=== PATIENT | female | born 1985 | race Caucasian/White ===

== ENCOUNTER 2016-08-14 08:08 | Emergency (ER) | payer BC ==
[2016-08-14 08:17] VITALS: BP 108/69
--- NOTE | 2016-08-14 08:32 | UC ---
Throat Pain/Nasal Reji HPI - HPI Summary HPI Summary: complaint of red itchy eye that started 4 days ago started on gentamycin eyedrops on but it hasn't helped her eye more purulent discharge for the last 2 days denies eye pain and vision changes sore throat that started 2 days ago fever of 102 last night nasal congfestion denies cough took tylenol last night with some relief - History of Current Complaint Chief Complaint: UCEye Stated Complaint: RIGHT EYE/SINUS,SORE THROAT,FEVER Time Seen by Provider: 08/14/16 08:24 Hx Obtained From: Patient Hx Last Menstrual Period: 07/16/16 - Allergies/Home Medications Allergies/Adverse Reactions: Allergies Allergy/AdvReac Type Severity Reaction Status Date / Time Erythromycin Allergy Severe Vomiting Verified 08/14/16 08:17 PMH/Surg Hx/FS Hx/Imm Hx Previously Healthy: No - conjunctivitis Respiratory History Of: Reports: Asthma Neurological History Of: Reports: Migraine - occasionally Psychological History Of: Reports: Anxiety, Depression - Surgical History Surgical History: Yes Surgery Procedure, Year, and Place: C SECTION 2011, 2014 - Family History Known Family History: Negative: Cardiac Disease, Hypertension, Diabetes - Social History Occupation: Employed Full-time Lives: With Family Alcohol Use: Occasionally Substance Use Type: None Smoking Status (MU): Never Smoked Tobacco - Immunization History Most Recent Influenza Vaccination: 2016 Most Recent Tetanus Shot: up to date Most Recent Pneumonia Vaccination: never Review of Systems Constitutional: Fever Skin: Negative Eyes: Drainage, Eye Redness ENT: Sore Throat, Nasal Discharge Respiratory: Negative Cardiovascular: Negative Gastrointestinal: Negative Genitourinary: Negative Motor: Negative Neurovascular: Negative Musculoskeletal: Negative Neurological: Negative Psychological: Negative All Other Systems Reviewed And Are Negative: Yes Physical Exam Triage Information Reviewed: Yes Appearance: Well-Nourished, Ill-Appearing Vital Signs: Initial Vital Signs Temp 99.4 F 08/14/16 08:10 Pulse 109 08/14/16 08:10 Resp 16 08/14/16 08:10 BP 108/69 08/14/16 08:10 Pulse Ox 98 08/14/16 08:10 Vital Signs Reviewed: Yes Eyes: Positive: Conjunctiva Inflamed - right>left, Discharge ENT: Positive: Pharyngeal erythema, Nasal congestion, Nasal drainage, TMs normal , Tonsillar swelling, Tonsillar exudate Neck: Positive: No Lymphadenopathy Respiratory: Positive: Lungs clear, Normal breath sounds, No respiratory distress, No accessory muscle use Cardiovascular: Positive: RRR, No Murmur, Pulses Normal Abdomen Description: Positive: Nontender, No Organomegaly, Soft Bowel Sounds: Positive: Present Musculoskeletal: Positive: No Edema Neurological: Positive: Alert Psychological Exam: Normal Skin Exam: Normal Throat Pain/Nasal Course/Dx - Differential Dx/Diagnosis Differential Diagnosis/HQI/PQRI: Pharyngitis, Tonsillitis, Other - conjunctivitis Provider Diagnoses: conjunctivitis-bilateral. pharyngitis Discharge - Discharge Plan Condition: Stable Disposition: HOME Prescriptions: Tobramycin (Ophth) [Tobrex] 0.3 % OP Q4HR #1 jaylyn Patient Education Materials: Conjunctivitis (ED), Pharyngitis (ED) Referrals: Milan Zhu MD [Medical Doctor] - Additional Instructions: CONJUNCTIVITIS What is Conjunctivitis? Conjunctivitis is redness and swelling of the conjunctiva, the thin transparent layer that lines the inner eyelid and covers the white part of the eye. The three main types of conjunctivitis are infectious, allergic, and chemical. The infectious type, commonly called "pink eye," is caused by a contagious virus or by bacteria. Your body's allergies to pollen, cosmetics, animals or fabrics often bring on allergic conjunctivitis. Irritants like air pollution, noxious fumes and chlorine in swimming pools may produce the chemical form. Symptoms Might Include: More tearing Eye pain Redness in the eyes Gritty feeling in the eyes Itching of the eye Blurred vision Sensitivity to light Crusts that form on the eyelid overnight Treatment Recommendations: Use eye drops or ointment as directed. Do not rub or touch your eyes. Wash your hands frequently. Use cool compresses to relieve pain and itching. Prevention: Do not share eye make-up. Replace eye make-up frequently. Do not share towels, washcloths, etc. Do not share eye drops. Disinfect and handle contact lenses properly. PHARYNGITIS (Sore Throat) What is Pharyngitis? The medical name for a sore throat is Pharyngitis. It is caused by an infection or irritation of your throat or tonsils. The infection can be caused by a virus or by bacteria. Not everyone with Pharyngitis needs antibiotics. Antibiotics will not make viral infections better, and they will not help a sore throat caused by irritation. Symptoms May Include: Sore throat Swelling of the glands in the neck Trouble or pain with swallowing Fever Headache Cough Extreme tiredness Ear pain Treatment Recommendations: Gargle every few hours with a solution of 1/4 teaspoon of salt dissolved in 1/ 2 cup of warm water. Drink plenty of warm beverages, like tea with lemon, (with or without honey) and soup. You may eat and drink cold foods and liquids like frozen yogurt, popsicles, and ice water if that makes your throat feel better. The goal is to keep you well hydrated. Use a "cool-mist" vaporizer or humidifier in the room where you spend most of your time. If you get a sore throat often, consider adding an electronic air filter and humidifier to your furnace system. Don't smoke. Do not eat spicy foods. Take medicine exactly as prescribed. If you do not think it is helping, call your healthcare provider. Do not increase how much or how often you take it without getting their OK first. Non-prescription anti-inflammatory medicine like ibuprofen (Motrin, Advil) or naproxen (Aleve) may help lessen the pain. You should not take these medicines if you have had bleeding in your stomach in the past. Acetaminophen ( Tylenol) is another choice of medicine that may help the pain. If pain medicine that makes you tired or sleepy or contains narcotics is prescribed, you should not drink, drive, or participate in any other activities that you need to be clear-headed for. Please keep all medicines out of the reach of children. Do not get in close contact with anyone you know who has a sore throat. Use throat lozenges (Cepostat, [place], etc.) or suck on hard candy for temporary relief of the pain with swallowing. (Do not give to children under age 5.) Call Your Doctor or Return Here IF: Your symptoms do not start to get better within 2 days or you become worse. You have a fever over 101.0 F orally. You cant swallow liquids or saliva. You are drooling. You start to have trouble breathing. You start to have a rash. Call Your Doctor or Return Here IF: Your symptoms worsen or do not improve in 3 to 4 days. You have problems with, or loss of, your vision. You have a significant increase in pain. You have any new symptoms that worry you.
== END 2016-08-14 08:54 | disposition home or self-care (01) ==
LOC: UCCORT 08:08
DX: H10.33 Unspecified acute conjunctivitis, bilateral (principal); J02.9 Acute pharyngitis, unspecified; J45.909 Unspecified asthma, uncomplicated; G43.909 Migraine, unspecified, not intractable, without status migrainosus; F41.8 Other specified anxiety disorders; Z88.1 Allergy status to other antibiotic agents
CPT/HCPCS: 87651; 99212; G0463

== ENCOUNTER 2017-11-06 06:11 | Day surgery (SDC) | payer BC ==
--- NOTE | 2017-10-30 11:54 | HP ---
AMENDED REPORT NOW INCLUDES COSIGNER DESIGNATION - ESIGNED BEFORE ADJUSTMENT CC: Rashmi Ye NP, Marlys Foster * ADMISSION HISTORY AND PHYSICAL: DATE OF ADMISSION: 11/06/17 ATTENDING SURGEON: Dr. Deangelo Melgar.* (DICTATED BY DIONI MCMAHON) CHIEF COMPLAINT: Gallstones. HISTORY OF PRESENT ILLNESS: This is a 32-year-old female, who began having upper intestinal symptoms around the first of this year. She describes attacks occurring mostly at night with midepigastric pain that goes straight through to her back. She is unable to find a comfortable position. Attacks last for between 1 and 4 hours and are associated with nausea, but no vomiting, fever, or chills. She typically has some loose stool. She has not noted any change or darkening of her urine. Initially, attacks occurred about once monthly and now approximately once every week or two, the most recent being on 10/25/17. She underwent ultrasound on 09/13/17, which showed fatty liver changes and multiple gallstones, though no gallbladder wall thickening, pericholecystic fluid, or ductal dilatation. She was seen in the office by Dr. Melgar on , at which time she was examined. Lab work was obtained on that date showing a normal CBC and a normal CMP including liver function tests. Dr. Melgar feels that her clinical picture is consistent with symptomatic cholelithiasis. The patient understands the indications for surgery, the risks , benefits, and alternatives, and would like to proceed as scheduled with laparoscopic cholecystectomy. PAST MEDICAL HISTORY: Asthma (well controlled), morbid obesity. PAST SURGICAL HISTORY: x2 and D and C (the patient states that in both cases, she was anemic in the postop period, but did not require transfusion ). CURRENT MEDICATIONS: 1. TriNessa ( control pill) once daily. 2. Protonix 40 mg once daily p.r.n. (not actively using at the present time.) 3. Ventolin MDI 2 puffs 4 times daily p.r.n. (has not required recently). DRUG ALLERGIES: ERYTHROMYCIN (GI effects). FAMILY HISTORY: Negative for anesthesia problems, bleeding, or clotting disorders. She states that her father told her that he was told at one point to have his gallbladder out, but that he has not yet undergone surgery. SOCIAL HISTORY: The patient is , she has 2 children. 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 She denies use of tobacco. She drinks on an average less or equal to 1 to 2 drinks per week. She denies any other recreational drug use. REVIEW OF SYSTEMS: General: No recent constitutional symptoms or acute illnesses other than described in the HPI. HEENT: No recent changes or problems reported. Cardiovascular: No chest pain, palpitations, or history of heart murmur. Respiratory: No recent exacerbations of her asthma. No cough or shortness of breath. GI: As above per HPI, history of some acid reflux symptoms but no additional problems recently. : No problems reported. 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 Endocrine: No diabetes or thyroid dysfunction. Remainder of review of system is negative. PHYSICAL EXAMINATION GENERAL: Well-nourished, morbidly obese female, in no acute distress. VITAL SIGNS: Height 67 inches, weight 257 pounds, BMI of 40. Temperature 97.9 , blood pressure 124/82, pulse 74, respirations 16. HEENT: Pupils equal and round, reactive. EOMs intact. No conjunctival pallor or scleral icterus. Oropharynx: Teeth in good repair. Mucous membranes are moist. No intraoral lesions. NECK: No lymphadenopathy in the cervical or supraclavicular areas. No thyromegaly or masses. LUNGS: Clear to auscultation. No wheezes. HEART: Regular rate and rhythm. No murmur noted. BREASTS: Not examined. ABDOMEN: Pfannenstiel incision, soft, nontender to palpation. Negative Burleson' s sign. No palpable masses or organomegaly. GENITALIA AND RECTAL: Not done. BACK: No spinous processes or CVA tenderness. EXTREMITIES: No edema. NEUROLOGIC: Grossly intact. SKIN: Warm and dry. No suspicious rashes or lesions. IMPRESSION: Symptomatic cholelithiasis. PLAN: Laparoscopic cholecystectomy. DIONI MCMAHON [id number]/[facility] #: [id number] DANIELA
[~2017-11-06 06:11] MED LIST: Acetaminophen TAB* 325 MG PO ONE; Buffered Lidocaine 0.9% SYRIN* 5 ML/SYR SYRINGE INTRADERM ONE
[2017-11-06] MEDS ORDERED: Acetaminophen TAB* 325 MG ONE (06:41)
[2017-11-06] MEDS ORDERED: ceFAZolin 2 GM PREMIX (*) 2 GM/50 ML BAG IVPB ONE (06:42)
[2017-11-06] MEDS ORDERED: Midazolam* 1 MG/ML 2 ML VIAL (2 MG) ONE (07:14)
[2017-11-06] MEDS ORDERED: fentaNYL* 50 MCG/ML 2 ML VIAL (100 MCG VIAL) ONE ×3 (07:14→09:52)
[2017-11-06] MEDS ORDERED: Bupivacaine 0.25% W/EPI* 10 ML SDV ONE ×2 (07:21→07:22)
[2017-11-06] MEDS ORDERED: Rocuronium* 10 MG/ML VIAL ONE (07:40)
[2017-11-06] MEDS ORDERED: Propofol* 10 MG/ML 20 ML BTL IV PUSH ONE ×2 (07:40→08:38)
[2017-11-06] MEDS ORDERED: Dexamethasone IV* 4 MG/ML 1 ML (4 MG) ONE (07:40)
[2017-11-06] MEDS ORDERED: Famotidine IV* 10 MG/ML 2 ML (20 mg) ONE (07:40)
[2017-11-06] MEDS ORDERED: Ketorolac INJ* 30 MG/ML 1 ML VIAL ONE (07:50)
[2017-11-06] MEDS ORDERED: Ondansetron INJ* 2 MG/ML VIAL ONE (07:50)
[2017-11-06] MEDS ORDERED: HYDROmorphone INJ* 0.5 MG/0.5 ML SYRINGE ONE ×2 (07:54→08:34)
[2017-11-06] MEDS ORDERED: Nalbuphine* 10 MG/ML 1 ML VIAL IV PRN (08:03)
[2017-11-06] MEDS ORDERED: Naloxone* 0.4 MG/ML 1 ML VIAL IV PRN (08:03)
[2017-11-06] MEDS ORDERED: Levalbuterol 0.63MG/3ML NEB* UNIT OF USE INH PRN (08:03)
[2017-11-06] MEDS ORDERED: PROCHLORPERAZINE INJ 5 MG/ML 2 ML VIAL IV PRN (08:03)
[2017-11-06] MEDS ORDERED: Acetaminophen TAB* 325 MG PO PRN (08:03)
[2017-11-06] MEDS ORDERED: diPHENhydraMINE IV* 50 MG/ML 1 ml VIAL (BENADRYL) IV PRN (08:03)
[2017-11-06] MEDS ORDERED: HYDROcodone/ACETAMIN 5-325 MG* 1 TAB PO PRN ×2 (08:03)
[2017-11-06] MEDS ORDERED: Ondansetron INJ* 2 MG/ML VIAL IV PRN (08:03)
[2017-11-06] MEDS ORDERED: Scopolamine 1.5 mg* PATCH TRANSDERM PRN (08:03)
[2017-11-06] MEDS ORDERED: DiMENhydriNATE IV* 50 MG/ML VIAL IV PUSH PRN (08:03)
[2017-11-06] MEDS ORDERED: HYDROmorphone INJ* 0.5 MG/0.5 ML SYRINGE IV PRN (08:03)
[2017-11-06] MEDS ORDERED: Labetalol IV* 5 MG/ML 20 ML VIAL ONE (08:39)
[2017-11-06] MEDS ORDERED: DiMENhydriNATE IV* 50 MG/ML VIAL ONE (09:52)
[2017-11-06] MEDS: fentaNYL* 50 MCG/ML 2 ML VIAL (100 MCG VIAL) IV PRN ×2 (09:53→10:08)
[2017-11-06] MEDS ORDERED: HYDROcodone/ACETAMIN 5-325 MG* 1 TAB ONE (10:07)
[2017-11-06 11:36] VITALS: BP 108/77
--- NOTE | 2017-11-06 21:35 | OP ---
DATE OF OPERATION: 11/06/17 - [facility] DATE OF : 81 SURGEON: Deangelo Melgar MD CAMERA REPAIRER: Layla Davies NP ANESTHESIOLOGIST: Mac Brower MD ANESTHESIA: General with local. PRE-OP DIAGNOSES: Cholelithiasis and right upper quadrant abdominal pain. POST-OP DIAGNOSES: Cholelithiasis and right upper quadrant abdominal pain. OPERATIVE PROCEDURE: Laparoscopic cholecystectomy. ESTIMATED BLOOD LOSS: Minimal. WOUND CLASSIFICATION: II. COMPLICATIONS: None. DRAINS: None. SPECIMENS: Gallbladder. DESCRIPTION OF PROCEDURE: Written informed consent was obtained, the abdomen was marked with indelible ink and preoperative antibiotics were administered. The patient was taken to the operating room, placed in the supine position. Sequential compression devices and a warming blanket were applied. General anesthesia was administered. The abdomen was prepped and draped in the usual sterile fashion. Time-out verification was completed. Initially, a small transverse incision was made just above the umbilicus and the midline fascia was divided and the peritoneal cavity was entered under direct vision. A 12-mm blunt port was inserted and the abdomen was insufflated to 15 mmHg. Under direct vision, an 11-mm epigastric port was placed and two 5-mm ports were placed on the right side of the abdominal wall. Liver appeared to be unremarkable. The gallbladder was identified. There was slightly thickened wall, but without discoloration, pericholecystic fluid, or any evidence of acute inflammation. It was somewhat small and contracted and it appeared to be somewhat intrahepatic , but it was grasped and we were able to elevate this up into view. There were peritoneal omental adhesions along the infundibular area, which were taken down sharply. Next, the peritoneum along the medial and lateral aspects of the infundibular area of the gallbladder was then taken down carefully and then I identified the cystic duct and artery as they entered the gallbladder. This cystic duct appeared to be of expected and normal caliber. I took a considerable portion of the inferior part of the gallbladder off the liver bed using the critical view technique to assure myself of these 2 structures. The cystic duct and artery were then doubly clipped and divided. The gallbladder was removed from the liver bed using cautery. The gallbladder was somewhat intrahepatic and there was some bleeding encountered in this portion of dissection from the liver bed, but this was controlled with electrocautery. The gallbladder was then placed in an Endo Catch bag and brought out through the epigastric incision. Once again, hemostasis was assured in the liver bed. All ports were removed under direct vision of the camera. The umbilical fascia was closed with interrupted 0 Vicryl suture. The skin at all 4 incisions was approximated with subcuticular 4-0 Vicryl suture. Steri-Strips were applied. The patient tolerated the procedure well and was taken to the recovery room in stable condition. [id number]/[facility] #: [id number] [facility]ILDREN'S HOSPITALClaude
[2017-11-09] MEDS ORDERED: Scopolamine PATCH Remove* 1 NOTE MISC PATCH OFF ONE (08:04)
== END 2017-11-06 11:56 | disposition home or self-care (01) ==
LOC: OR 06:11
PROVIDERS: ATTEND Surgery
DX: K80.10 Calculus of gallbladder with chronic cholecystitis without obstruction (principal); R10.11 Right upper quadrant pain; E66.01 Morbid (severe) obesity due to excess calories; Z68.41 Body mass index [BMI] 40.0-44.9, adult; Z79.51 Long term (current) use of inhaled steroids
CPT/HCPCS: 81025; 88304; A9270-GY; J0690; J1100; J1170; J1240; J1885; J2250; J2405; J2704; J3010

== ENCOUNTER 2019-05-26 19:19 | Emergency (ER) | payer BC ==
[2019-05-26 19:39] VITALS: BP 110/62
--- NOTE | 2019-05-26 19:46 | UC ---
Throat Pain/Nasal Reji HPI - HPI Summary HPI Summary: 34 yo female with sore throat and swollen glands x 2 day nausea but no vomiting [place] myalgias ? fever - History of Current Complaint Chief Complaint: UCRespiratory Stated Complaint: SORE THROAT Time Seen by Provider: 05/26/19 19:26 Hx Obtained From: Patient Hx Last Menstrual Period: 05/07/19 Onset/Duration: Gradual Onset, Lasting Days Severity: Mild Pain Intensity: 4 Pain Scale Used: 0-10 Numeric Cough: None Associated Signs & Symptoms: Positive: Fever - ? - Epiglottits Risk Factors Epiglottis Risk Factors: Negative - Allergies/Home Medications Allergies/Adverse Reactions: Allergies Allergy/AdvReac Type Severity Reaction Status Date / Time erythromycin base Allergy Vomiting Verified 05/26/19 19:28 Home Medications: Home Medications Trinessa Tablet 1 tab PO DAILY 10/31/17 [History Confirmed 05/26/19] Albuterol HFA INHALER* [Ventolin HFA Inhaler*] 2 puff INH Q4H PRN 05/26/19 [ History Confirmed 05/26/19] Amoxicillin PO (*) [Amoxicillin 875 MG (*)] 875 mg PO BID #20 tab 05/26/19 [Rx] Ibuprofen TAB* [Advil TAB*] 200 mg PO Q6H PRN 05/26/19 [History Confirmed ] PMH/Surg Hx/FS Hx/Imm Hx - Surgical History Surgical History: Yes Surgery Procedure, Year, and Place: C SECTION 2011, 2015. cholycystectomy - Family History Known Family History: Negative: Cardiac Disease, Hypertension, Diabetes - Social History Alcohol Use: Rare Alcohol Amount: 1-2 BEERS MONTH...OR LESS Substance Use Type: None Smoking Status (MU): Never Smoked Tobacco Have You Smoked in the Last Year: No - Immunization History Most Recent Influenza Vaccination: 2016 Most Recent Tetanus Shot: up to date Most Recent Pneumonia Vaccination: never Review of Systems All Other Systems Reviewed And Are Negative: Yes Constitutional: Positive: Chills Skin: Positive: Negative Eyes: Positive: Negative ENT: Positive: Sore Throat Respiratory: Positive: Negative Cardiovascular: Positive: Negative Gastrointestinal: Positive: Negative Genitourinary: Positive: Negative Motor: Positive: Negative Neurovascular: Positive: Negative Musculoskeletal: Positive: Myalgia Neurological/Mental Status: Positive: Headache Psychological: Positive: Negative Physical Exam Triage Information Reviewed: Yes Appearance: Well-Appearing, No Pain Distress, Well-Nourished Vital Signs: Initial Vital Signs Temp 99.2 F 05/26/19 19:30 Pulse 111 05/26/19 19:30 Resp 18 05/26/19 19:30 BP 110/62 05/26/19 19:30 Pulse Ox 99 05/26/19 19:30 Vital Signs Reviewed: Yes Eyes: Positive: Conjunctiva Clear ENT: Positive: Hearing grossly normal, Pharyngeal erythema, Tonsillar swelling, Uvula midline. Negative: Nasal congestion, Nasal drainage, Tonsillar exudate, Trismus, Muffled voice, Hoarse voice Dental Exam: Normal Neck: Positive: Supple, Nontender, Enlarged Nodes @ - ant cerv Respiratory: Positive: Lungs clear, Normal breath sounds, No respiratory distress, No accessory muscle use Cardiovascular: Positive: RRR, No Murmur Musculoskeletal: Positive: ROM Intact, No Edema Neurological: Positive: Alert Psychological Exam: Normal Skin Exam: Normal Diagnostics - Laboratory Lab Results: strep + Throat Pain/Nasal Course/Dx - Differential Dx/Diagnosis Provider Diagnosis: Strep throat Discharge ED - Sign-Out/Discharge Documenting (check all that apply): Patient Departure All imaging exams completed and their final reports reviewed: No Studies - Discharge Plan Condition: Stable Disposition: HOME Prescriptions: Amoxicillin PO (*) [Amoxicillin 875 MG (*)] 875 mg PO BID #20 tab Patient Education Materials: Strep Throat (ED) Referrals: Rashmi Ye NP [Primary Care Provider] - 4 Days (if not better) - Billing Disposition and Condition Condition: STABLE Disposition: Home
[2019-05-26] MEDS ORDERED: Amoxicillin PO (*) 500 MG CAP PO ONE (19:51)
[2019-05-26] MEDS ORDERED: Amoxicillin PO (*) 250 MG CAP PO ONE (19:51)
== END 2019-05-26 20:03 | disposition home or self-care (01) ==
LOC: UCCORT 19:19
DX: J02.0 Streptococcal pharyngitis (principal); R51 Headache; Z88.1 Allergy status to other antibiotic agents
CPT/HCPCS: 87651; 99212; A9270-GY; G0463

== ENCOUNTER 2022-06-16 10:19 | Observation (INO) ==
[2022-06-16] MEDS ORDERED: Al Hydrox/Mg Hydrox/Simet LIQ 30 ML UDC PO ONE (12:18)
[2022-06-16 12:56] LABS: ABS Lymphocytes 1.9 10^3/ul (1.0-4.8); ABS Monocytes 0.5 10^3/ul (0-0.8); ABS Neutrophils 5.5 10^3/ul (1.5-7.7); Eosinophil % 0.6 %; Hematocrit 41 % (35-47); Lymphocyte % 24.2 %; Mean Corpuscular HGB Conc 35 g/dL (31-36); Mean Corpuscular Hemoglobin 31 pg (27-31); Mean Corpuscular Volume 89 fL (80-97); Mean Platelet Volume 9.1 fL (7.4-10.4); Platelet Count 168 10^3/uL (150-450); Red Blood Count 4.58 10^6 /uL (3.70-4.87); Red Cell Distribution Width 13 % (10-15)
[2022-06-16 13:01] LABS: Urine Appearance Cloudy; Urine Bilirubin Negative (Negative); Urine Blood 1+ (Negative); Urine Color Yellow; Urine Glucose Negative (Negative); Urine Ketones Trace (Negative); Urine Nitrite Negative (Negative); Urine Protein Negative (Negative); Urine Specific Gravity 1.019 (1.002-1.030); Urine Urobilinogen Negative (Negative)
[2022-06-16 13:04] LABS: Urine Bacteria Absent (Absent); Urine Red Blood Cell 2+(6-10/hpf) (Absent); Urine Squamous Epithelial Cell Present (Absent); Urine White Blood Cell Trace(0-5/hpf) (Absent)
[2022-06-16 13:46] LABS: Albumin 3.9 g/dL (3.2-5.2); Albumin/Globulin Ratio 1.3 (1-3); C Reactive Protein 50.73 mg/L (<8.01); Creatinine, Serum 0.71 mg/dL (0.51-0.95); Potassium 3.9 mmol/L (3.5-5.0); Total Bilirubin 0.8 mg/dL (0.2-1.0); Total Protein 6.9 g/dL (6.4-8.9); eGFR CKD-EPI 110.8 (>60)
[2022-06-16] MEDS ORDERED: Iohexol 300 (CONTRAST) 10 ML SDV IV ONE (14:23)
[2022-06-16] MEDS ORDERED: Ondansetron 4 mg VIAL 2 MG/ML 2 ml VIAL IV ONE (16:14)
[2022-06-16] MEDS ORDERED: Morphine 4 MG/ML VIAL (1 ml) IV ONE (16:14)
[2022-06-16] MEDS ORDERED: NS 0.9% 1000 ml BAG 1,000 ML IV ONE (16:14)
[2022-06-16] MEDS ORDERED: Ondansetron 4 mg VIAL 2 MG/ML 2 ml VIAL IV PRN (17:12)
[2022-06-16] MEDS: NS 0.9% 1000 ml BAG 1,000 ML IV SCH (18:14)
[2022-06-16] MEDS: Morphine 2 MG/ML SYRINGE IV PRN ×3 (18:14→23:39)
[2022-06-16] MEDS ORDERED: Acetaminophen IV 1 GM/100ML 1,000 MG/100 ML BAG IV PRN (18:43)
[2022-06-17] MEDS: NS 0.9% 1000 ml BAG 1,000 ML IV SCH ×3 (01:10→15:02)
[2022-06-17] MEDS: Morphine 2 MG/ML SYRINGE IV PRN ×3 (01:34→06:31)
[2022-06-17 06:15] LABS: ABS Eosinophils 0.1 10^3/ul (0-0.6); ABS Lymphocytes 2.2 10^3/ul (1.0-4.8); ABS Monocytes 0.5 10^3/ul (0-0.8); ABS Neutrophils 3.5 10^3/ul (1.5-7.7); Hematocrit 33 % (35-47); Hemoglobin 11.4 g/dL (12.0-16.0); Lymphocyte % 34.4 %; Mean Corpuscular HGB Conc 35 g/dL (31-36); Mean Corpuscular Hemoglobin 31 pg (27-31); Mean Corpuscular Volume 88 fL (80-97); Mean Platelet Volume 8.8 fL (7.4-10.4); Platelet Count 131 10^3/uL (150-450); Red Blood Count 3.73 10^6 /uL (3.70-4.87); Red Cell Distribution Width 13 % (10-15); White Blood Count 6.3 10^3/uL (3.5-10.8)
[2022-06-17 06:38] LABS: Calcium 7.9 mg/dL (8.6-10.3); Creatinine, Serum 0.67 mg/dL (0.51-0.95); Potassium 3.9 mmol/L (3.5-5.0); eGFR CKD-EPI 113.9 (>60)
[2022-06-17 15:33] VITALS: BP 119/76
== END 2022-06-17 18:05 | disposition home or self-care (01) ==
LOC: ED 10:19 → EDHOLD 10:19 → MEDTELE 06-17 00:01
PROVIDERS: ADMIT Hospitalist; ATTEND Hospitalist